=== PATIENT | female | born 1990 | race Caucasian/White ===

== ENCOUNTER → 2023-12-02 11:12 | Outpatient (REF) | payer OTHER, SELFPAY | LOC: PNTC 11:12 | PROVIDERS: ATTENDING PHYSICIAN Obstetrics & Gynecology | DX: O09.529 Supervision of elderly multigravida, unspecified trimester (principal); Z36.0 Encounter for antenatal screening for chromosomal anomalies; Z36.82 Encounter for antenatal screening for nuchal translucency | CPT/HCPCS: 76801; 76813 ==

== ENCOUNTER → 2023-12-23 10:44 | Outpatient (REF) | payer OTHER, SELFPAY | LOC: PNTC 10:44 | PROVIDERS: ATTENDING PHYSICIAN Obstetrics & Gynecology | DX: O99.210 Obesity complicating pregnancy, unspecified trimester (principal) | CPT/HCPCS: 76805 ==

== ENCOUNTER → 2024-01-28 16:21 | Outpatient (REF) | payer OTHER, SELFPAY | LOC: PNTC 16:21 | PROVIDERS: ATTENDING PHYSICIAN Obstetrics & Gynecology | DX: O09.529 Supervision of elderly multigravida, unspecified trimester (principal); Z36.0 Encounter for antenatal screening for chromosomal anomalies; O09.519 Supervision of elderly primigravida, unspecified trimester; O99.210 Obesity complicating pregnancy, unspecified trimester | CPT/HCPCS: 76811 ==

== ENCOUNTER → 2024-03-04 17:30 | Outpatient (REF) | payer OTHER, SELFPAY | LOC: PNTC 17:30 | PROVIDERS: ATTENDING PHYSICIAN Obstetrics & Gynecology | DX: O99.210 Obesity complicating pregnancy, unspecified trimester (principal) | CPT/HCPCS: 76816 ==

== ENCOUNTER → 2024-04-20 17:25 | Outpatient (REF) | payer OTHER, SELFPAY | LOC: PNTC 17:25 | PROVIDERS: ATTENDING PHYSICIAN Obstetrics & Gynecology | DX: O99.210 Obesity complicating pregnancy, unspecified trimester (principal); O09.529 Supervision of elderly multigravida, unspecified trimester | CPT/HCPCS: 76816 ==

== ENCOUNTER 2024-05-26 08:24 | Inpatient (IN) | payer OTHER, SELFPAY ==
[2024-05-26 08:31] VITALS: BMI 34.5
[2024-05-26 08:33] VITALS: BP 127/84
[2024-05-26 09:38] LABS: % Basophils 0.4 % (0-2); % Eosinophils 0.3 % (0-6); % Immature Granulocytes 0.3 % (0-0.5); % Lymphocytes 18.7 % (20.5-51.1); % Monocytes 7.1 % (1.7-9.3); % Neutrophils 73.2 % (42.2-75.2); Absolute Lymphocytes 1.4 10^3/uL (1.2-3.4); Absolute Monocytes 0.5 10^3/uL (0.1-0.6); Absolute Neutrophils 5.6 10^3/uL (1.4-6.5); Hematocrit 32.4 % (37.0-47.0); Hemoglobin 11.2 g/dL (12.0-16.0); Mean Corp Hgb Conc. 34.6 g/dL (33.0-37.0); Mean Corpuscular Hgb 30.3 pg (27.0-31.0); Mean Corpuscular Volume 87.6 fL (81.0-99.0); Mean Platelet Volume 10.1 fL (7.4-10.4); Nucleated Red Blood Cells % 0 %; Platelet Count 225 10^3/uL (130-400); Red Cell Dist. Width 13.2 % (11.5-14.5); White Blood Cell Count 7.6 10^3/uL (4.8-10.8)
[2024-05-26] MEDS: PITOCIN 30 UNITS/NSS 500 ML IV (10:33)
[2024-05-26] MEDS: SUBLIMAZE 100 MCG EPIDURAL (13:54)
[2024-05-26] MEDS: FENTANYL/BUPIVACAINE 100 EPIDURAL (13:54)
[2024-05-27 05:17] LABS: Hematocrit 31.9 % (37.0-47.0)
[2024-05-27] MEDS: MOTRIN 600 MG PO ×2 (08:13→14:38)
[2024-05-27] MEDS: PRENATAL PLUS 1 TABLET PO (08:13)
[2024-05-28] MEDS: MOTRIN 600 MG PO ×2 (05:02→12:10)
[2024-05-28] MEDS: PRENATAL PLUS 1 TABLET PO (08:55)
[2024-05-28] MEDS: TYLENOL 650 MG PO (12:10)
[2024-05-29 10:37] LABS: Syphilis/T. pallidum Ab Reflex Negative (Negative)
== END 2024-05-28 12:00 | disposition home or self-care (01) | DRG 807 ==
LOC: LDRP 08:24
PROVIDERS: ADMITTING PHYSICIAN Obstetrics & Gynecology; ATTENDING PHYSICIAN Student in an Organized Health Care Education/Training Program; FAMILY PHYSICIAN Family Medicine
PROC: 3E033VJ Introduction of Other Hormone into Peripheral Vein, Percutaneous Approach (ICD-10-PCS; 2024-05-26)
PROC: 4A1HXCZ Monitoring of Products of Conception, Cardiac Rate, External Approach (ICD-10-PCS; 2024-05-26)
PROC: 10E0XZZ Delivery of Products of Conception, External Approach (ICD-10-PCS; 2024-05-26)
DX: O42.02 Full-term premature rupture of membranes, onset of labor within 24 hours of rupture (principal); Z37.0 Single live birth; Z3A.38 38 weeks gestation of pregnancy
CPT/HCPCS: 36415; 85014; 85018; 85025; 86780; 86850; 86900; 86901